=== PATIENT | male | born 2000 | race Caucasian/White ===

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

== ENCOUNTER 2019-02-22 17:10 | Emergency (ER) | payer MEDICAID ==
--- NOTE | 2019-02-22 18:35 | EDM.PDOC ---
ED HPI GENERAL MEDICAL PROBLEM - General Chief Complaint: Laceration Stated Complaint: CUT LEFT LEG Time Seen by Provider: 02/22/19 17:30 Source of Information: Reports: Patient, Family History Limitations: Reports: No Limitations - History of Present Illness INITIAL COMMENTS - FREE TEXT/NARRATIVE: Escobar comes into [facility] ED for laceration repair of the L knee, which was cut early am on a can. There is no active bleeding, and the wound was dressed. His tetanus vax status is current. - Related Data Allergies Allergy/AdvReac Type Severity Reaction Status Date / Time bee pollen Allergy Other Verified 07/05/18 02:59 Home Meds: Home Meds Acyclovir [Zovirax] 400 mg PO TID #30 tablet 07/04/18 [Rx] Past Medical History Respiratory History: Reports: Asthma - Past Surgical History GI Surgical History: Reports: Appendectomy Musculoskeletal Surgical History: Reports: Other (See Below) (surgery to repair lacerated tendons in R hand,with residual contracture R 4th digit) Social & Family History - Caffeine Use Caffeine Use: Reports: Soda ED ROS GENERAL - Review of Systems Review Of Systems: Comprehensive ROS is negative, except as noted in HPI. ED EXAM, SKIN/RASH Exam: See Below Exam Limited By: No Limitations General Appearance: Alert, WD/WN, No Apparent Distress, Obese Head: Normocephalic Neck: Normal Inspection, Supple Respiratory/Chest: Lungs Clear Cardiovascular: Regular Rate, Rhythm Back Exam: Normal Inspection Extremities: Normal Range of Motion, Other (4 cm simple laceration to L knee overlying patella) Neurological: Alert, Oriented, CN II-XII Intact, Normal Cognition, No Motor/ Sensory Deficits Psychiatric: Normal Affect, Normal Mood Skin: Warm, Dry, Normal Color, No Rash, Wound/Incision (laceration L knee) ED SKIN PROCEDURES - Laceration/Wound Repair Left Anterior Knee Appearance: Subcutaneous Distal NVT: Neuro & Vascular Intact, No Tendon Injury Anesthetic Type: Local Local Anesthesia - Lidocaine (Xylocaine): 1% Plain Local Anesthetic Volume: 4cc Skin Prep: Chlorhexidine (Hibiciens) Exploration/Debridement/Repair: Wound Explored, In a Bloodless Field, No Foreign Material Found Closed with: Sutures Lac/Wound length In cm: 4 Suture Size: 4-0 # of Sutures: 7 Suture Type: Nylon, Interrupted Drain Placement: No Sterile Dressing Applied: Nurse Tetanus Status Addressed: Yes Complications: No Course - Vital Signs Text/Narrative:: Patient tolerated procedure well. Last Recorded V/S: Last Vital Signs Temp 37.1 C 02/22/19 17:15 Pulse 86 02/22/19 17:15 Resp 18 02/22/19 17:15 BP 156/88 H 02/22/19 17:15 Pulse Ox 98 02/22/19 17:15 Departure - Departure Time of Disposition: 18:00 Disposition: Home, Self-Care 01 Condition: Good Clinical Impression: Laceration of left knee Qualifiers: Encounter type: initial encounter Qualified Code(s): S81.012A - Laceration without foreign body, left knee, initial encounter - Discharge Information *PRESCRIPTION DRUG MONITORING PROGRAM REVIEWED*: Not Applicable *COPY OF PRESCRIPTION DRUG MONITORING REPORT IN PATIENT JASBIR: Not Applicable Instructions: Sutured Wound Care, [id number] Referrals: Cecily Johns PA-C [Primary Care Provider] - Forms: ED Department Discharge Care Plan Goals: SUTURES OUT IN 10-12 DAYS FOLLOW INSTRUCTIONS ON SUTURES. WATCH FOR INFECTION Sepsis Event Note - Evaluation Sepsis Screening Result: No Definite Risk - Focused Exam Vital Signs: Vital Signs Temp Pulse Resp BP Pulse Ox 02/22/19 17:15 37.1 C 86 18 156/88 H 98 Date Exam was Performed: 02/22/19 Time Exam was Performed: 18:30 - Problem List & Annotations (1) Laceration of left knee SNOMED Code(s): 44011397744939264 Code(s): S81.012A - LACERATION WITHOUT FOREIGN BODY, LEFT KNEE, INIT ENCNTR Status: Acute Current Visit: Yes Annotation/Comment:: Routine wound cares , and SR in 10-12 days. Qualifiers: Encounter type: initial encounter Qualified Code(s): S81.012A - Laceration without foreign body, left knee, initial encounter - Problem List Review Problem List Initiated/Reviewed/Updated: Yes - Assessment/Plan Plan: Follow up with PCP.
== END 2019-02-22 18:00 | disposition home or self-care (01) ==
LOC: FB.ED 17:10
DX: S81.012A Laceration without foreign body, left knee, initial encounter (principal); Z91.030 Bee allergy status; J45.909 Unspecified asthma, uncomplicated; W26.8XXA Contact with other sharp object(s), not elsewhere classified, initial encounter
CPT/HCPCS: 12002; 99282; J2001

== ENCOUNTER 2019-08-10 20:48 | Emergency (ER) | payer MEDICAID, OTHER ==
[2019-08-10] MEDS ORDERED: Silver Sulfadiazine 1% Crm 50 GM Tube TOP ONE (20:49)
--- NOTE | 2019-08-10 21:23 | EDM.PDOC ---
ED HPI GENERAL MEDICAL PROBLEM - General Chief Complaint: Skin Complaint Stated Complaint: SUNBURN Time Seen by Provider: 08/10/19 21:18 Source of Information: Reports: Patient History Limitations: Reports: No Limitations - History of Present Illness INITIAL COMMENTS - FREE TEXT/NARRATIVE: Patient sustained a sunburn yesterday while fishing for 4 hours. He did apply sunscreen, SPF unknown. The right arm began to blister last night, which worsened today. Complains of minimal pain. Tetanus vaccine is UTD per patient. Onset Date: 08/09/19 Location: Reports: Upper Extremity, Right Severity: Mild - Related Data Allergies Allergy/AdvReac Type Severity Reaction Status Date / Time bee pollen Allergy Localized Verified 08/10/19 21:14 Swelling Home Meds: Home Meds NK [No Known Home Meds] 02/22/19 [History] Past Medical History Respiratory History: Reports: Asthma Dermatologic History: Reports: Psoriasis - Past Surgical History GI Surgical History: Reports: Appendectomy Musculoskeletal Surgical History: Reports: Other (See Below) (surgery to repair lacerated tendons in R hand,with residual contracture R 4th digit) Social & Family History - Caffeine Use Caffeine Use: Reports: Soda ED ROS GENERAL - Review of Systems Review Of Systems: Comprehensive ROS is negative, except as noted in HPI. ED EXAM, SKIN/RASH Exam: See Below Exam Limited By: No Limitations General Appearance: Alert, WD/WN, No Apparent Distress Ears: Normal External Exam Nose: Normal Inspection Throat/Mouth: No Airway Compromise Head: Atraumatic, Normocephalic Neck: Full Range of Motion, Other (1st degree sunburn posterior neck) Respiratory/Chest: No Respiratory Distress Peripheral Pulses: 2+: Radial (R) GI/Abdominal: No Distention Back Exam: Full Range of Motion Extremities: Normal Range of Motion, Normal Capillary Refill, Other (2.5% TBSA 2nd degree burn to right upper arm and proximal forearm, non-circumferential, minimally tender, blisters are intact. 1st degree burn to left upper arm.) Neurological: Alert, Normal Cognition, No Motor/Sensory Deficits Psychiatric: Normal Affect, Normal Mood Course - Vital Signs Last Recorded V/S: Last Vital Signs Temp 35.7 C L 08/10/19 21:00 Pulse 99 08/10/19 21:00 Resp 18 08/10/19 21:00 BP 149/97 H 08/10/19 21:00 Pulse Ox 98 08/10/19 21:00 - Orders/Labs/Meds Orders: Active Orders 24 hr Category Date Time Status Silver Sulfadiazine [Silvadene 1% Cream 50 GM] Med 08/10/19 21:30 Ordered 5 gm TOP DAILY - Re-Assessments/Exams Free Text/Narrative Re-Assessment/Exam: 08/10/19 21:25 Silvadene cream 1% (50 gm) was dispensed in the ED Departure - Departure Time of Disposition: 21:25 Disposition: Home, Self-Care 01 Condition: Good Clinical Impression: Second degree sunburn - Discharge Information *PRESCRIPTION DRUG MONITORING PROGRAM REVIEWED*: No *COPY OF PRESCRIPTION DRUG MONITORING REPORT IN PATIENT JASBIR: Not Applicable Instructions: Sunburn, Adult, [id number] Referrals: Cecily Johns PA-C [Primary Care Provider] - Additional Instructions: Apply Silvadene cream and change dressing daily. Take Tylenol or Ibuprofen as needed to control pain. Follow up with symptoms or signs of infection. Sepsis Event Note (ED) - Focused Exam Vital Signs: Vital Signs Temp Pulse Resp BP Pulse Ox 08/10/19 21:00 35.7 C L 99 18 149/97 H 98 - My Orders Last 24 Hours: My Active Orders 08/10/19 21:30 Silver Sulfadiazine [Silvadene 1% Cream 50 GM] 5 gm TOP DAILY - Assessment/Plan Last 24 Hours: My Active Orders 08/10/19 21:30 Silver Sulfadiazine [Silvadene 1% Cream 50 GM] 5 gm TOP DAILY
[2019-08-10] MEDS ORDERED: Silver Sulfadiazine 1% Crm 50 GM Tube TOP SCH (21:30)
== END 2019-08-10 21:40 | disposition home or self-care (01) ==
LOC: FB.ED 20:48
DX: L55.1 Sunburn of second degree (principal); Z91.030 Bee allergy status
CPT/HCPCS: 99282; A9270

== ENCOUNTER 2020-01-15 15:40 | Emergency (ER) | payer MEDICAID ==
--- NOTE | 2020-01-15 16:40 | EDM.PDOC ---
ED HPI GENERAL MEDICAL PROBLEM - General Chief Complaint: Lower Extremity Injury/Pain Stated Complaint: RT FOOT INJURY Time Seen by Provider: 01/15/20 16:25 Source of Information: Reports: Patient, Old Records, RN History Limitations: Reports: No Limitations - History of Present Illness INITIAL COMMENTS - FREE TEXT/NARRATIVE: 19 yo male presents with R ankle pain after he deliberately kicked a door. Here for eval. Onset: Today, Sudden Onset Date: 01/15/20 Duration: Minutes: Location: Reports: Lower Extremity, Right Quality: Reports: Ache Severity: Moderate Improves with: Reports: Rest Worsens with: Reports: Movement Context: Reports: Trauma Associated Symptoms: Reports: No Other Symptoms Treatments [employer]: Reports: Other (see below) (none) - Related Data Allergies Allergy/AdvReac Type Severity Reaction Status Date / Time bee pollen Allergy Localized Verified 08/10/19 21:14 Swelling Home Meds: Home Meds Albuterol [Ventolin HFA] 1 puff INH Q4H PRN 08/10/19 [History] Fluticasone Propion/Salmeterol [Fluticasone-Salmeterol 250-50] 1 puff INH BID 08/10/19 [History] Lisdexamfetamine [Vyvanse] 70 mg PO DAILY 08/10/19 [History] Montelukast [Singulair] 10 mg PO DAILY 08/10/19 [History] Triamcinolone Acetonide [Kenalog 0.1% Crm] 1 applic TOP BID PRN 08/10/19 [History] Venlafaxine HCl [Venlafaxine HCl ER] 75 mg PO ASDIRECTED 08/10/19 [History] lamoTRIgine [Lamotrigine] 200 mg PO DAILY 08/10/19 [History] valACYclovir HCl [valACYclovir] 1,000 mg PO DAILY 08/10/19 [History] Past Medical History Respiratory History: Reports: Asthma Dermatologic History: Reports: Psoriasis - Past Surgical History GI Surgical History: Reports: Appendectomy Musculoskeletal Surgical History: Reports: Other (See Below) (surgery to repair lacerated tendons in R hand,with residual contracture R 4th digit) Social & Family History - Tobacco Use Years of Tobacco use: 5 Packs/Tins Daily: 0.5 - Caffeine Use Caffeine Use: Reports: Soda - Recreational Drug Use Recreational Drug Use: No Review of Systems - Review of Systems Review Of Systems: See Below Constitutional: Reports: No Symptoms Musculoskeletal: Reports: Joint Pain (R ankle). Denies: Joint Swelling Skin: Reports: No Symptoms Neurological: Reports: No Symptoms ED EXAM, GENERAL - Physical Exam Exam: See Below Exam Limited By: No Limitations General Appearance: Alert, WD/WN, No Apparent Distress, Obese Extremities: Normal Inspection, Normal Range of Motion, No Pedal Edema. No: Non-Tender Neurological: Alert, Oriented, CN II-XII Intact, Normal Cognition, No Motor/Sensory Deficits Psychiatric: Normal Affect, Normal Mood Skin Exam: Warm, Dry, Intact, Normal Color, No Rash Course - Orders/Labs/Meds Orders: Active Orders 24 hr Category Date Time Status Ankle Min 3V Rt [CR] Stat Exams 01/15/20 16:36 Ordered Foot Comp Min 3V Rt [CR] Stat Exams 01/15/20 15:50 Taken - Radiology Interpretation Free Text/Narrative:: R Foot and ankle X-rays-neg Departure - Departure Time of Disposition: 17:00 Disposition: Home, Self-Care 01 Condition: Fair Clinical Impression: Right ankle sprain Qualifiers: Encounter type: initial encounter Involved ligament of ankle: calcaneofibular ligament Qualified Code(s): S93.411A - Sprain of calcaneofibular ligament of right ankle, initial encounter - Discharge Information *PRESCRIPTION DRUG MONITORING PROGRAM REVIEWED*: No *COPY OF PRESCRIPTION DRUG MONITORING REPORT IN PATIENT JASBIR: No Instructions: Ankle Sprain, [id number] Referrals: Cecily Johns PA-C [Primary Care Provider] - Forms: ED Department Discharge Additional Instructions: Elevate and apply ice to the area several times a day today and tomorrow. Take ibuprofen 600 mg every 6 hrs with food and acetaminophen up to 1000 mg every 6 hrs for pain relief. Recheck by your doctor in a week if not improving. Rest. Sepsis Event Note (ED) - Evaluation Sepsis Screening Result: No Definite Risk - My Orders Last 24 Hours: My Active Orders 01/15/20 15:50 Foot Comp Min 3V Rt [CR] Stat 01/15/20 16:36 Ankle Min 3V Rt [CR] Stat - Assessment/Plan Last 24 Hours: My Active Orders 01/15/20 15:50 Foot Comp Min 3V Rt [CR] Stat 01/15/20 16:36 Ankle Min 3V Rt [CR] Stat
--- NOTE | 2020-01-15 17:57 | CR ---
INDICATION: Injury - kicked door last night hitting instep. RIGHT FOOT: Three views of the right foot were obtained 01/15/20 - no comparison. A fracture, dislocation or other significant bone or joint abnormality, was not identified. No soft tissue swelling was noted. If symptoms persist, if occult fracture site is suspected clinically, re- examination in 10-14 days may be helpful. [facility]
--- NOTE | 2020-01-15 18:00 | CR ---
INDICATION: Injury. RIGHT ANKLE: Three views of the right ankle were obtained 01/15/20 - no comparisons. Soft tissue swelling is noted overlying the lateral malleolus. There is suggestion of slightly widened lateral ankle mortise joint space. This could be on the basis of lateral ligamental strain and should be correlated clinically. Some minimal hypertrophic change is noted at the medial malleolus which most likely represents minimal post-traumatic osteoarthritis. A definite acute fracture or dislocation was not identified. If symptoms persist - if occult abnormality is suspected clinically, re- examination in 10--14 days and/or more advanced imaging, may be helpful. Report was called to Dr. Ardon at 1649 hours. [facility]
== END 2020-01-15 17:10 | disposition home or self-care (01) ==
LOC: FB.ED 15:40
DX: S93.411A Sprain of calcaneofibular ligament of right ankle, initial encounter (principal); J45.909 Unspecified asthma, uncomplicated; F17.210 Nicotine dependence, cigarettes, uncomplicated; Z79.899 Other long term (current) drug therapy; Z91.030 Bee allergy status; W22.8XXA Striking against or struck by other objects, initial encounter
CPT/HCPCS: 73610-RT; 73630-RT; 99283

== ENCOUNTER 2020-05-07 02:49 | Emergency (ER) | payer OTHER, MEDICAID ==
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
== END 2020-05-07 04:15 | disposition home or self-care (01) ==
LOC: FB.ED 02:49
DX: S06.9X1A Unspecified intracranial injury with loss of consciousness of 30 minutes or less, initial encounter (principal); S01.01XA Laceration without foreign body of scalp, initial encounter; S01.111A Laceration without foreign body of right eyelid and periocular area, initial encounter; F10.120 Alcohol abuse with intoxication, uncomplicated; J45.909 Unspecified asthma, uncomplicated; Z91.030 Bee allergy status; Z79.899 Other long term (current) drug therapy; X58.XXXA Exposure to other specified factors, initial encounter
CPT/HCPCS: 12002; 12011; 36415; 70450; 70486; 72125; 80053; 80305-QW; 80307; 84484; 85025; 99284-25; 99285

== ENCOUNTER 2020-05-07 17:22 | Emergency (ER) | payer OTHER, MEDICAID ==
[2020-05-07] MEDS ORDERED: Cyclobenzaprine 10 MG Tab PO STA (17:50)
[2020-05-07] MEDS ORDERED: Meclizine 25 MG Tab PO STA (17:50)
[2020-05-07] MEDS ORDERED: Ketorolac 60 MG/2 ML SDV IM STA (17:50)
[2020-05-07] MEDS ORDERED: Ondansetron 4 MG Tab.DIS PO STA (17:50)
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
[2020-05-07] MEDS ORDERED: Potassium Chloride 20 MEQ Tab.ER PO STA (19:04)
== END 2020-05-07 19:25 | disposition home or self-care (01) ==
LOC: FB.ED 17:22
DX: S06.0X9A Concussion with loss of consciousness of unspecified duration, initial encounter (principal); S01.91XA Laceration without foreign body of unspecified part of head, initial encounter
CPT/HCPCS: 36415; 70450; 80048; 85025; 96372; 99284-25; A9270-GY; J1885

== ENCOUNTER 2023-05-27 15:12 | Emergency (ER) | payer MEDICAID, OTHER ==
[2023-05-27] MEDS ORDERED: predniSONE 20 MG Tab PO ONE (15:13)
[2023-05-27] MEDS ORDERED: methylPREDNISolone Sodium Succinate 125 MG/2 ML SDV IM ONE (15:22)
[2023-05-27] MEDS: Albuterol/Ipratropium 3.0-0.5 MG/3 ML Neb Soln NEB ONE (15:27)
== END 2023-05-27 16:23 | disposition home or self-care (01) ==
LOC: FB.ED 15:12
DX: J45.909 Unspecified asthma, uncomplicated (principal); F17.210 Nicotine dependence, cigarettes, uncomplicated; Z91.030 Bee allergy status; Z79.899 Other long term (current) drug therapy; Z79.51 Long term (current) use of inhaled steroids
CPT/HCPCS: 94640; 99285; J7512; 99283; J7620